=== PATIENT | male | born 1950 | race Two or more races ===

== ENCOUNTER 2017-10-22 13:47 | Outpatient (CLI) | payer OTHER | END 2017-10-22 13:55 | disposition home or self-care (01) | LOC: LAB 13:47 | DX: N40.0 Benign prostatic hyperplasia without lower urinary tract symptoms (principal); Z51.81 Encounter for therapeutic drug level monitoring ==

== ENCOUNTER 2017-10-23 11:01 | Outpatient (CLI) | payer OTHER | END 2017-10-23 15:53 | disposition home or self-care (01) | LOC: TOM 11:01 | DX: N40.0 Benign prostatic hyperplasia without lower urinary tract symptoms (principal) | CPT/HCPCS: 74178; Q9965 ==

== ENCOUNTER 2022-06-09 09:53 | Outpatient (CLI) | payer OTHER | END 2022-06-09 09:59 | disposition home or self-care (01) | LOC: TOM 09:53 | PROVIDERS: ATTEND Urology | DX: N40.0 Benign prostatic hyperplasia without lower urinary tract symptoms (principal); R97.20 Elevated prostate specific antigen [PSA]; N41.9 Inflammatory disease of prostate, unspecified; F52.21 Male erectile disorder; N39.0 Urinary tract infection, site not specified | CPT/HCPCS: 74178; Q9965 ==